=== PATIENT | female | born 1935 | race Two or more races ===

== ENCOUNTER → 2021-11-24 | Outpatient (CLI) | payer OTHER | END | disposition home or self-care (01) | LOC: SONOGRAMA 11:30 | PROVIDERS: ATTEND Pathology Anatomic Pathology | DX: D34 Benign neoplasm of thyroid gland (principal); E04.9 Nontoxic goiter, unspecified; E04.2 Nontoxic multinodular goiter ==

== ENCOUNTER 2024-12-03 09:22 | Inpatient (IN) | payer OTHER ==
[~2024-12-03] VITALS: Ht 160 cm; Wt 49.9 kg
[2024-12-03] MEDS ORDERED: XARELTO10 M1 PO (09:25)
[2024-12-03] MEDS ORDERED: ROSUVASTATIN CAL5 MG (09:25)
[2024-12-03] MEDS ORDERED: METOPROLOL SUCC25 MG PO (09:25)
[2024-12-03] MEDS ORDERED: RESTORIL15 MG PO (09:25)
--- NOTE | 2024-12-03 09:31 | NUR ---
SE RECIBE PTE ALERTA Y ORIENTADA X3 EN AMBULANCIA. PARAMEDICO REFIERE QUE PTE TENIA DXT EN 38 MG/DL Y ADMINISTRARON 50% DEXTROSE. SE MIDE SV, DXT 107 MG/DL.
[2024-12-03] MEDS ORDERED: ENALAPRILAT DIHYDRATE 1.25 MG/ML VIAL IV ONE ×2 (10:08→10:15)
[2024-12-03 10:26] LABS: BASO % 0.2 % (0.1-1.2); EOS # 0.02 (0.04-0.54); EOS % 0.2 % (0.7-7.0); LYMPH # 1.22 (1.18-3.74); LYMPH % 10.6 % (19.3-53.1); MEAN PLATELET VOLUME 9.70 fl (9.4-12.4); MONO # 0.97 (0.24-0.82); MONO % 8.4 % (4.7-12.5); NEUT # 9.25 (1.56-6.13); NEUT % 80.3 % (34.0-71.1); RED CELL DISTRIBUTION WIDTH 10.7 % (11.6-14.4)
--- NOTE | 2024-12-03 10:30 | NUR ---
SE ORIENTA PTE SOBRE TX A SEGUIR, LA MISMA REFIERE ENTENDER. SE CHYNA MUESTRAS DE LAB Y SE ADMINISTRA MED BERTHA ORDEN MEDICA
[2024-12-03 11:05] LABS: BUN CREA RATIO 27.0 (7.0-25.0); CREATININE SERUM 0.66 mg/dL (0.55-1.02); GFR 84.52; GLUCOSE FASTING 109.0 mg/dL (65-100); OSMOLALITY SERUM 293.0 MOSM/KG (275-295)
[2024-12-03 11:51] LABS: URINE APPEARANCE Clear; URINE BILIRRUBIN Negative (NEGATIVE); URINE BLOOD Negative; URINE COLOR Yellow; URINE KETONE Negative (NEGATIVE); URINE LEUKOCYTE Moderate; URINE NITRATE Negative; URINE PROTEIN Negative (NEGATIVE); URINE UROBILINOGEN 1.0 E.U./dl
[2024-12-03 11:54] LABS: URINE BACTERIA 125.9 uL (0.0-1933); URINE EPITHELIAL CELLS 2.6 uL (0.0-38.8); URINE RBC 6.5 uL (0.0-20.8); URINE WBC 556.6 uL (0.0-23.2)
[2024-12-03 12:13] LABS: URINE CAST 0.14 uL (0.0-1.40); URINE GLUCOSE >=1000 MG/DL (NEGATIVE)
[2024-12-03] MEDS ORDERED: levoFLOXacin IN DEXTROSE 5 % 500MG/100ML PIGGYBAG IV ONE ×2 (16:00→17:01)
[2024-12-03] MEDS ORDERED: ACETAMINOPHEN 325 MG TABLET PO PRN (18:30)
[2024-12-03] MEDS ORDERED: 0.9 % SODIUM CHLORIDE 1,000 ML IV SCH (18:30)
[2024-12-03] MEDS ORDERED: ENALAPRILAT DIHYDRATE 1.25 MG/ML VIAL IV PRN (18:30)
[2024-12-03] MEDS ORDERED: DEXTROSE 50 % IN WATER 0.5 G/ML DISP.SYRIN IV PRN (20:00)
[2024-12-03] MEDS ORDERED: INSULIN LISPRO 1,000 UNIT/10 ML UNITS SUBCUTANEO PRN (20:00)
[2024-12-03 20:57] LABS: COVID-19 AG NEGATIVE (NEGATIVE)
[2024-12-03] MEDS ORDERED: TEMAZEPAM 15 MG CAPSULE PO SCH (21:00)
[2024-12-04 00:33] VITALS: BP 130/90
[2024-12-04 01:20] VITALS: BP 120/75; O2SAT 96
[2024-12-04] MEDS ORDERED: ROSUVASTATIN CALCIUM 10 MG TABLET PO SCH (09:00)
[2024-12-04] MEDS ORDERED: METOPROLOL SUCCINATE 25 MG TAB.SR.24H PO SCH (09:00)
[2024-12-04] MEDS ORDERED: INSULIN NPH HUM/REG INSULIN HM 1,000 UNIT/10 ML UNITS SUBCUTANEO SCH (09:00)
[2024-12-04] MEDS ORDERED: MULTAQ 400 MG PO SCH (09:00)
[2024-12-04] MEDS ORDERED: RIVAROXABAN 10 MG TAB PO SCH (09:00)
[2024-12-04 09:24] VITALS: BP 153/66; O2SAT 97
[2024-12-04 14:05] LABS: INR 1.33
[2024-12-04 14:27] LABS: CHOL HDL RATIO 2.5 (0-5.0); HDL 52.0 mg/dl (40-60); LDL 63.0 mg/dl (0-130); TSH 1.07 uIU/mL (0.358-3.74); VLDL 13.0 (0-39)
[2024-12-04] MEDS ORDERED: HALOPERIDOL LACTATE 5 MG/ML AMPUL IM PRN (15:00)
[2024-12-04] MEDS ORDERED: PATIENTS OWN MEDICATION (MEDICAMENTO EN PISO) PO SCH (17:00)
[2024-12-04 17:44] VITALS: BP 128/83
[2024-12-05 02:40] VITALS: BP 114/72; O2SAT 95
[2024-12-05 07:00] LABS: BUN CREA RATIO 35.0 (7.0-25.0); CREATININE SERUM 0.62 mg/dL (0.55-1.02); GFR 90.84; GLUCOSE FASTING 155.0 mg/dL (65-100); OSMOLALITY SERUM 288.0 MOSM/KG (275-295)
[2024-12-05 08:26] VITALS: BP 98/67
[2024-12-05] MEDS ORDERED: INSULIN NPH HUM/REG INSULIN HM 1,000 UNIT/10 ML UNITS SUBCUTANEO SCH (17:00)
[2024-12-05 17:34] VITALS: BP 100/60; O2SAT 97
[2024-12-06 02:42] VITALS: BP 103/64; O2SAT 95
[2024-12-06] MEDS ORDERED: INSULIN NPH HUM/REG INSULIN HM 1,000 UNIT/10 ML UNITS SUBCUTANEO SCH ×2 (08:00)
[2024-12-06 08:55] VITALS: BP 119/54
== END 2024-12-06 15:16 | disposition home or self-care (01) | DRG 641 ==
LOC: ER 09:22 → SEC-K 17:58 → SURH 20:14 → SEC-K 21:15 → MEDJ 12-04 00:15
PROVIDERS: General Practice; ADMIT Student in an Organized Health Care Education/Training Program; ATTEND Student in an Organized Health Care Education/Training Program
PROC: BW28ZZZ Computerized Tomography (CT Scan) of Head (ICD-10-PCS; principal; 2024-12-03)
PROC: B246ZZZ Ultrasonography of Right and Left Heart (ICD-10-PCS; 2024-12-03)
PROC: 4A12X4Z Monitoring of Cardiac Electrical Activity, External Approach (ICD-10-PCS; 2024-12-04)
DX: E16.2 Hypoglycemia, unspecified (principal); G45.9 Transient cerebral ischemic attack, unspecified; R54 Age-related physical debility; G31.84 Mild cognitive impairment of uncertain or unknown etiology; R82.81 Pyuria; E11.65 Type 2 diabetes mellitus with hyperglycemia; Z79.4 Long term (current) use of insulin; I48.91 Unspecified atrial fibrillation

== ENCOUNTER 2025-02-05 08:07 | Outpatient (CLI) | payer OTHER ==
[~2025-02-05 08:07] MED LIST: HUMULIN 70100 UNIT/2 SQ; MEMANTINE HCL5 MG PO; METOPROLOL SUCC25 MG PO; MULTAQ400 MG PO; RESTORIL15 MG PO; ROSUVASTATIN CAL5 MG; XARELTO10 M1 PO
== END 2025-02-05 08:08 | disposition home or self-care (01) ==
LOC: NUCLEAR 08:07
PROVIDERS: ATTEND Psychiatry & Neurology Clinical Neurophysiology
DX: G30.1 Alzheimer's disease with late onset (principal)
CPT/HCPCS: 78803; A9557